=== PATIENT | male | born 1945 | race Caucasian/White ===

== ENCOUNTER 2025-03-06 03:41 | Emergency (ER) | payer OTHER ==
[~2025-03-06] VITALS: Ht 160 cm; Wt 76.0 kg
[2025-03-06] MEDS ORDERED: KETOROLAC TROMETHAMINE 30 MG/ML VIAL IM ONE (04:15)
[2025-03-06] MEDS ORDERED: PSEUDOEPHEDRINE HCL 30 MG TAB PO ONE (04:15)
[2025-03-06] MEDS ORDERED: PAXLOVID 300-11 EAC1 PO (04:57)
[2025-03-06] MEDS ORDERED: CYCLOBENZAPRINE10 MG PO (04:57)
[2025-03-06] MEDS ORDERED: NASAL DECONGEST30 MG PO (04:57)
[2025-03-06 05:06] VITALS: BP 148/79
== END 2025-03-06 05:08 | disposition home or self-care (01) ==
LOC: ED 03:41
DX: U07.1 COVID-19 (principal); Z88.2 Allergy status to sulfonamides
CPT/HCPCS: 96372; 99283; A9270; J1885; U0002